=== PATIENT | male | born 1935 | race Caucasian/White ===

== ENCOUNTER 2022-08-26 19:02 | Emergency (ER) | payer OTHER ==
[~2022-08-26] VITALS: Ht 182.9 cm; Wt 82.1 kg
[2022-08-26] MEDS ORDERED: LISINOPRIL10 MG PO (19:32)
[2022-08-26] MEDS ORDERED: VITAMIN D325 MCG PO (19:32)
[2022-08-26] MEDS ORDERED: GLIPIZIDE XL2.5 MG PO (19:33)
[2022-08-27] MEDS ORDERED: LASIX20 MG PO (23:03)
--- NOTE | 2022-08-30 18:54 | EKG ---
[facility] [address] [place] [address] Signed Sinus tachycardia Left axis deviation Abnormal ECG No previous ECGs available Confirmed by Stew Saxena MD () on 08/30/2022 6:54:43 PM Electronically Signed By: STEW SAXENA MD 08/30/221853 PATIENT NAME: BENJAMIN EMMANUEL Electrocardiogram DATE OF : 35 PHYSICIAN: STEW SAXENA MD REPORT #: [id number] REPORT IS CONFIDENTIAL AND NOT TO BE RELEASED WITHOUT AUTHORIZATION
== END 2022-08-26 23:55 | disposition home or self-care (01) ==
LOC: ED 19:02
DX: B34.9 Viral infection, unspecified (principal); E86.0 Dehydration; Z20.822 Contact with and (suspected) exposure to COVID-19; I10 Essential (primary) hypertension; Z79.899 Other long term (current) drug therapy
CPT/HCPCS: 36415; 51701; 71045; 80053; 81001; 83605; 83735; 84484; 85025; 87502; 93005; 93010; 99284-25; A9270; C9803; J0696; J7030; J7121; U0003

== ENCOUNTER 2022-08-27 18:22 | Emergency (ER) | payer OTHER ==
[~2022-08-27] VITALS: Ht 182.9 cm; Wt 82.1 kg
[~2022-08-27 18:22] MED LIST: GLIPIZIDE XL2.5 MG PO; LISINOPRIL10 MG PO; VITAMIN D325 MCG PO
--- OUTSIDE RECORDS SUMMARY | 2022-08-27 18:31 | XMS ---
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 - 2 Visits in 30 Days CARE PROVIDERS There are no care providers on record at this time. [facility] has no Care Guidelines for this patient. [facility]12 MO.) [facility] NOTE: Visits indicate total known visits. ED/C VISIT TRACKING (12 MO.) [facility]22 [facility] COMPLAINT: - WEAKNESS 08/26/2022 19:03 [facility] [place] TYPE: Emergency COMPLAINT: - WEAKNESS INPATIENT VISIT TRACKING (12 MO.) No inpatient visits to display in this time frame [id number]
[2022-08-27] MEDS ORDERED: LASIX20 MG PO (23:03)
== END 2022-08-27 23:28 | disposition home or self-care (01) ==
LOC: ED 18:22
DX: I11.0 Hypertensive heart disease with heart failure (principal); I50.9 Heart failure, unspecified; B34.9 Viral infection, unspecified; Z79.899 Other long term (current) drug therapy
CPT/HCPCS: 36415; 71260; 80053; 83880; 85025; 85379; 94640; 96374; 96375; 99284-25; J1940; J2930; Q9967